=== PATIENT | female | born 1995 | race Caucasian/White ===

== ENCOUNTER 2020-03-03 22:30 | Emergency (ER) | payer MEDICAID, OTHER ==
[~2020-03-03] VITALS: Ht 162.6 cm; Wt 60.0 kg
[2020-03-03 22:32] VITALS: BP 128/99
[2020-03-03 22:50] LABS: BASOPHILS # (AUTO) 0.1 X10'3 (0-0.2); BASOPHILS % (AUTO) 0.6 % (0-1); EOSINOPHILS # (AUTO) 1.1 X10'3 (0-0.9); EOSINOPHILS % (AUTO) 10.5 % (0-6); HEMATOCRIT 46.9 % (35.0-45.0); HEMOGLOBIN 15.8 g/dl (12.0-16.0); LYMPHOCYTES # (AUTO) 3.7 X10'3 (1.1-4.8); LYMPHOCYTES % (AUTO) 36.3 % (21-51); MEAN CORPUSCULAR HEMOGLOBIN 30.1 PG (27.0-31.0); MEAN CORPUSCULAR HGB CONC 33.7 g/dL (33.0-36.5); MEAN CORPUSCULAR VOLUME 89.3 FL (78-98); MEAN PLATELET VOLUME 6.8 FL (7.4-10.4); MONOCYTES # (AUTO) 0.8 X10'3 (0-0.9); MONOCYTES % (AUTO) 7.6 % (2-12); NEUTROPHILS # (AUTO) 4.6 X10'3 (1.8-7.7); PLATELET COUNT 292 X10'3 (140-440); RED BLOOD COUNT 5.25 X10'6 (4.20-5.60); WHITE BLOOD COUNT 10.3 X10'3 (4.5-11.0)
[2020-03-03 22:57] LABS: CLARITY,URINE CLEAR (Clear); COLOR,URINE STRAW (Yellow); GLUCOSE, URINE NEGATIVE (Neg); KETONES,URINE NEGATIVE (Neg); LEUKOCYTE ESTERASE ,URINE NEGATIVE (Neg); NITRITES, URINE NEGATIVE (Neg); OCCULT BLOOD,URINE NEGATIVE (Neg); PH,URINE 6.5 (4.8-8.0); PROTEIN,URINE NEGATIVE (Neg); UA COLLECTION TYPE CLN CATCH MIDSTREAM; URINE HCG NEGATIVE (NEG); UROBILINOGEN,URINE 0.2 E.U/dL (0.2-1.0)
[2020-03-03 23:02] LABS: URINE AMPHETAMINE SCREEN NEGATIVE (Neg); URINE BARBITUATE SCREEN NEGATIVE (Neg); URINE BENZODIAZEPINES SCREEN NEGATIVE (Neg); URINE CANNABINOID SCREEN NEGATIVE (Neg); URINE COCAINE SCREEN NEGATIVE (Neg); URINE METHADONE SCREEN NEGATIVE (Neg); URINE OPIATE SCREEN NEGATIVE (Neg); URINE PHENCYCLIDINE SCREEN NEGATIVE (Neg)
[2020-03-03 23:08] LABS: ALANINE AMINOTRANSFERASE 25 U/L (12-78); ALBUMIN 4.6 G/DL (3.4-5.0); ALBUMIN/GLOBULIN RATIO 1.4 (1.1-1.5); ALKALINE PHOSPHATASE 68 IU/L (46-116); ANION GAP 12 (8-16); ASPARTATE AMINO TRANSFERASE 15 U/L (10-37); BILIRUBIN,TOTAL 0.3 MG/DL (0.1-1.0); BLOOD UREA NITROGEN 14 MG/DL (7-18); BUN/CREATININE RATIO 16.3 (6.6-38.0); CHLORIDE 110 MMOL/L (99-107); CREATININE 0.86 MG/DL (0.40-0.90); GLUCOSE 86 MG/DL (70-104); POTASSIUM 3.7 MMOL/L (3.5-5.1); SODIUM 144 MMOL/L (135-145); TOTAL CARBON DIOXIDE 21.8 MMOL/L (24-32); eGFR 81 ML/MIN
[2020-03-03 23:17] LABS: ETHANOL 0.164 GM/DL (0.0-0.010)
[2020-03-03 23:21] LABS: ACETAMINOPHEN < 2.0 UG/ML (10-30)
--- NOTE | 2020-03-03 23:45 | NUR ---
Patient brought to bed 25 from main ER. Patient is well oriented, W/D, she has good color. Patient is dressed in green scrubs. Patient was brought to the ED from home by [employer] Officer. [address] dated 03/03/20 for DTS. Patient told family and police sergeant that she wanted to kill herself. Patient denies this, patient denies plan. Patient admits to drinking alcohol and using marijuana today. Patient exhibits anxiety, her affect if flat, she cries without tears. Patient states she had an arguement with her on the phone tonight. Patient states she kicked him out of the house over a month ago for drug use. Preavious psychiatric hospitalization at [facility] in [place]. Patient states a PTSD and Borderline Personality Disorder diagnosis. Patient states she takes no medications for the past year because "I'm fine without them." The patient is oriented to the overflow unit. Patient advised that she is under a 5150. Patient advised she is in a safe enviornment. The patient exhibits understanding. Patient will be given Melatonin for sleep. Patient is in direct view from nursing station. Frequent rounding will be done for patient safety.
--- NOTE | 2020-03-04 00:20 | NUR ---
Patient is now sleeping in a prone position.
--- NOTE | 2020-03-04 02:01 | NUR ---
Patient is stilll sleeping prone in bed.
[2020-03-04] MEDS ORDERED: Melatonin 3mg tablet PO SCH ×2 (03:35→21:00)
--- NOTE | 2020-03-04 03:59 | NUR ---
This patient awoke crying. Patient tells this board writer that she is concerned for her baby, that the baby is with a stranger. When questioned the patient states the baby was placed by the police with CPS? The patient was reassured that the baby would be in a safe place if that was the case. The patient also requested the Melatonin Rx, this was administered. The patient then requested a number for her employer from her cell phone. The organic extractions technician retrieved the phone number for the patient and the cell phone was placed back in the patients belongings. The patient was then given ice water, an orange juice, and then a warm blanket. The patient then laid back to sleep.
--- NOTE | 2020-03-04 04:04 | NUR ---
Pt employeers phone number: [phone]
--- NOTE | 2020-03-04 05:54 | NUR ---
Patient has awoken once again. Patient is crying once more. The patient tells this racebook writer that diazepam, ativan, and other benzo's don't help her wiht anxiety.
--- NOTE | 2020-03-04 06:52 | NUR ---
sleeping quietly in bed, s/sx of distress noted.
--- NOTE | 2020-03-04 07:50 | NUR ---
pt awake, up to restroom independently. asking for phone so she can call her employer. phone provided. asked why she cant have her own phone or belongings and RN told her it was hospital policy. pt seems to be slightly agitated and frustrated.
--- NOTE | 2020-03-04 07:58 | NUR ---
pt asking about her child and where he is. RN paged social psychologist to ask for assistance.
[2020-03-04] MEDS ORDERED: ALBU90AE INH (09:33)
[2020-03-04] MEDS ORDERED: ALBUTEROL INHALER 1 PUFF/90 MCG INHALER IH PRN (09:40)
[2020-03-04] MEDS ORDERED: albuterol 2.5 MG/3 ML nebule NEB PRN (09:45)
--- NOTE | 2020-03-04 09:54 | NUR ---
pt talking to [employer]PS on the phone.
--- NOTE | 2020-03-04 11:07 | NUR ---
sitting in bed talking to [facility].
== END 2020-03-04 12:08 | disposition home or self-care (01) ==
LOC: ER 22:30
DX: F10.129 Alcohol abuse with intoxication, unspecified (principal); R45.851 Suicidal ideations; Z90.89 Acquired absence of other organs; Z79.899 Other long term (current) drug therapy; Y90.0 Blood alcohol level of less than 20 mg/100 ml
CPT/HCPCS: 36415; 80053; 80305; 80320; 80329; 81003; 81025; 84443; 85025; 99285

== ENCOUNTER 2025-01-05 19:51 | Emergency (ER) | payer MEDICAID ==
[~2025-01-05] VITALS: Ht 162.6 cm; Wt 67.0 kg
[~2025-01-05 19:51] MED LIST: ALBU90AE INH
--- NOTE | 2025-01-05 20:32 | RADIOLOGY REPORT ---
Clinical History RIGHT HAND PAIN POST SMASHING TODAY BETWEEN 2 ROCKS Comparison None Without Contrast BREA DIA, [id number] TECHNIQUE: 3 view of the hand FINDINGS: There is no acute fracture or dislocation. Joint spaces are preserved. Soft tissue is unremarkable. No radiopaque foreign body seen. IMPRESSION: No acute osseous abnormality. This report was electronically signed by Thom Beal MD on 01/05/2025 8:29:06 PM.
--- NOTE | 2025-01-05 22:20 | Physician Documentation ---
History of Present Illness ~ Chief Complaint: Hand pain Stated Complaint: HAND PAIN Time Seen by MD: 22:01 Primary Medical Doctor: MARVIN PEREZ [facility] Source: patient (Was secured), family HPI [place] she jammed her hand between 2 large rocks. She then remove the rock and is now complaining of numbness and tingling to her 3rd 4th and 5th digits and discomfort to the back of her hand Tetanus within 5 years: Yes Medication Reconciliation Allergies: Coded Allergies: No Known Allergies (Unverified , 01/05/25) Scheduled PRN Albuterol Sulfate (Proair Respiclick), 2 PUFFS INH Q4HPRN PRN for shortness of breath, (Reported) Past Medical History Past Medical History: *PSYCH* Past Surgical History: tonsillectomy Alcohol Use: None Drug Use: none Lives In: Home Review of Systems All Other Systems at this time: Reviewed and Negative Physical Exam Vital Signs: Temperature: 98.8, Source: Temporal, Heart Rate: 85, Respiratory Rate: 16, BP: 116/68, Pulse Oximetry: 100, Weight: 67.000 Oxygen Flow Rate: 0 Physical Exam Well-appearing no distress Right elbow painless active passive range of motion Right wrist at painless active passive range of motion No snuffbox tenderness Radial ulnar pulses intact strong Good cap refill Small abrasion dorsum hand intact finger range of motion opposition intact no deformity small amount of swelling of the dorsum of her hand Progress Results/Orders Results/Orders Vital Signs 01/05/25 20:05 Temp 98.8 Pulse 85 Resp 16 B/P (MAP) 116/68 Pulse Ox 100 O2 Flow Rate 0 EKG/XRAY/CT/US/VASC/MRI Bone/Soft Tissue X-Ray (Ext.) : Additional Comment Independent interpretation of x-ray hand shows no acute fracture no foreign body no effusion Medical Decision Making Additional Comment Fracture or dislocation abrasion Departure Disposition: 01 HOME / SELF CARE / HOMELESS Impression: Primary Impression: Superficial bruising Additional Impression: Paresthesias Additional Instructions: This should heal up in a matter of days. Keep it elevated keep the splint in place for comfort. If you continue to have persistent numbness and tingling after 1 week follow up with either your PCP or with Orthopedic surgery Referrals: LUIS SINGLETON MD Signature Scribe Signature: na Attestation: na TONI,YUNG R MD January 05, 2025 22:20
[2025-01-05 22:28] VITALS: BP 128/74; PULSE 78; RESP 16; TEMP 98.4; O2SAT 99
== END 2025-01-05 22:30 | disposition home or self-care (01) ==
LOC: ER 19:52
DX: S60.221A Contusion of right hand, initial encounter (principal); S60.511A Abrasion of right hand, initial encounter; R20.2 Paresthesia of skin; X58.XXXA Exposure to other specified factors, initial encounter; Y93.89 Activity, other specified; Y92.89 Other specified places as the place of occurrence of the external cause; Y99.8 Other external cause status
CPT/HCPCS: 73130; 99283; A6449